=== PATIENT | female | born 1965 | race Caucasian/White ===

== ENCOUNTER 2016-09-08 08:44 | Emergency (ER) | payer BC ==
--- NOTE | 2016-09-08 09:14 | ERNOTE ---
Abdominal HPI - Narrative Date of Service: 09/08/16 - General Chief Complaint: Abdominal Pain Time Seen by Provider: 09/08/16 09:13 Source: patient Exam Limitations: no limitations - Immun/Allergies/Home Medications Immunizatons: IMMUNIZATION HX Immunizations Up to Date Yes History of Influenza Vaccine Yes Hx Pneumococcal Vaccination Yes Allergies/Adverse Reactions: Allergies Iodinated Contrast Media - IV Dye Allergy (Severe, Verified 01/15/16 12:37) CONVULSIONS latex Allergy (Unknown, Verified 01/15/16 12:37) nitrofurantoin Allergy (Verified 01/15/16 12:37) Penicillins Adverse Reaction (Mild, Verified 01/15/16 12:37) RASH Sulfa (Sulfonamide Antibiotics) Adverse Reaction (Mild, Verified 01/15/16 12:37) RASH atorvastatin calcium [From Lipitor] Adverse Reaction (Unknown, Verified 12:37) Other caused acute liver failure hydrochlorothiazide Adverse Reaction (Unknown, Verified 01/15/16 12:37) Other Passed out Home Medications: HOME MEDICATIONS Clonazepam 1 mg PO HS 03/21/15 [Last Taken 01/14/16] Omeprazole [Prilosec] 40 mg PO BID 03/21/15 [Last Taken 01/15/16] metFORMIN HCL [Glucophage] 500 mg PO BIDWM 03/21/15 [Last Taken 01/15/16] Albuterol Sulfate [Proair Hfa] 1 - 2 puff IH Q4H PRN 01/15/16 [Last Taken ] Methenamine Mandelate 1 gm PO BID 01/15/16 [Last Taken 01/15/16] Tiotropium Ophiem [Spiriva] 1 cap IH DAILY 01/15/16 [Last Taken 01/14/16] Activated Charcoal [CharcoCaps] 260 mg PO QID #20 cap 09/08/16 [Last Taken Unknown] Saccharomyces Boulardii [Florastor] 250 mg PO QID #20 capsule 09/08/16 [Last Taken Unknown] Simethicone 125 mg PO QID #20 tab.chew 09/08/16 [Last Taken Unknown] - History of Present Illness Narrative: About a week ago, this 51 year old diabetic woman developed some abdominal discomfort, which reminded her of diverticulitis, with which she was diagnosed about 6 months ago. She was place on Cipro and Flagyl. The cipro made her feel bad all over, like the veins were being torn out of her legs, and elevated her blood pressure. She is still taking the Flagyl. Yesterday, she began to have abdominal bloating, which is worse today. There is enough bloating that she feels as if she can't get a deep enough breath. She has a history of MADDISON and uses CPAP at home. There has been no nausea or vomiting, no diarrhea, no fever, chills or sweats. Timing: getting worse Quality: moderate Activities at Onset: none Modifying Factors - (Improves): Present: other - nothing Modifying Factors - (Worsens): Present: other - nothing Associated Symptoms: Present: swelling/mass in abdomen Prior Abdominal Problems: Present: similar symptoms Prior Treatment: Present: currently on antibiotics Review of Systems - Review of Systems Constitutional: Present: no symptoms reported EYE: Present: no symptoms reported ENT: Present: no symptoms reported Respiratory: Present: See HPI Cardiology: Present: no symptoms reported Gastrointestinal/Abdominal: Present: See HPI Genitourinary: Present: no symptoms reported Musculoskeletal: Present: no symptoms reported Skin: Present: no symptoms reported Neurological: Present: no symptoms reported Endocrine: Present: no symptoms reported Hematologic/Lymphatic: Present: no symptoms reported Psych: Present: no symptoms reported All Other Systems: All systems neg except as marked - Patient's Past Medical History Patient History - Medical: Anxiety, Diabetes Type 2, GERD, Kidney stone, UTI'S Patient History - Cardiac/Respiratory: Hypertension, Myocardial Infarction Patient History - Cancer: Bladder, Surgical Treatment Patient History - Surgical Procedures: Hysterectomy, T & A, Other - Family History Father Family History - Medical: , Diabetes Type 2 Family History - Cardiac/Respiratory: Hypertension, Valvular Heart Disease Mother Family History - Medical: , Rheumatoid Arthritis Family History - Cardiac/Respiratory: Hypertension Daughter Family History - Medical: Hypothyroidism, Kidney stone Family History - Cardiac/Respiratory: No pertinent hx - Social History Living Situations: spouse Smoking Status: Current every day smoker Have you smoked in the past 12 months: Yes Do you dip or chew tobacco: No Alcohol Use: occasionally Drug Use: none, other Physical Exam - Physical Exam General Appearance: Present: wd/wn, alert, no apparent distress Eye Exam: Normal inspection: bilateral, PERRL: bilateral, EOMI: bilateral Ears, Nose, Throat: Present: normal ENT inspection, hearing grossly normal Neck: Present: normal inspection, nontender Respiratory: Present: no respiratory distress, normal breath sounds Cardiovascular/Chest: Present: regular rate, rhythm, no murmur Gastrointestinal/Abdominal: Present: normal bowel sounds, soft, no organomegaly , tenderness - left upper abdomen seems more tender than other areas., distended Back Exam: Present: normal inspection, normal range of motion, no CVA tenderness , no vertebral tenderness Extremity Exam: Present: normal inspection, no edema Neurological Exam: Present: alert, normal mood/affect Skin Exam: Present: normal color, warm/dry ED Progress - Results and Orders Patient's Lab Results:: I have reviewed the patient's lab results. - Vital Signs Patient's Vital Signs:: I have reviewed the patient's vital signs. Vital Signs: Vital Signs 09/08/16 08:53 Pulse Rate 63 Respiratory 24 H Rate Blood Pressure 180/103 O2 Sat by Pulse 96 Oximetry - EKG EKG: NSR EKG read: Interp. by vt - X-Ray X-Ray #1 X-Ray: chest Interpretation: Interp. by me - non acute - CT/Ultrasound CT/Ultrasound Narrative: I have reviewed the abdominal CT report, which describes only non specific findings. - Progress/Reassessment Chief Complaint: Abdominal Pain Progress:: Improved Departure - Departure Clinical Impression: Abdominal bloating Disposition: Home self-care Condition: Good Instructions: Ileus Additional Instructions: rest. clear liquids only for 72 hours. followup with doctor of your choice in 2-3 days. Stop all antibiotics at the present time. Prescriptions: Activated Charcoal [CharcoCaps] 260 mg PO QID #20 cap Saccharomyces Boulardii [Florastor] 250 mg PO QID #20 capsule Simethicone 125 mg PO QID #20 tab.chew
[2016-09-08 09:24] LABS: Hematocrit 41.9 % (37.0-47.0); Hemoglobin 14.5 gm/dL (12.5-16.0); Mean Cell Volume 97.7 fl (78-100); Mean Corpuscular Hemoglobin 33.8 pg (27-31); Mean Corpuscular Hgb Conc 34.6 g/dl (32-36); Mean Platelet Volume 10.3 fl (6.0-9.5); Neutrophil # 5.3 K/mm3 (1.3-6.0); Neutrophil % 64.6 % (42-75.0); Platelet Count 226 K/mm3 (150-450); Red Blood Count 4.29 M/mm3 (4.2-5.4); Red Cell Distribution Width 11.9 % (11.5-14.0); White Blood Count 8.3 K/mm3 (4.0-10.5)
[2016-09-08 09:42] LABS: Albumin * 3.5 gm/dl (3.4-5.0); Anion Gap 16.9 mmol/L (6.8-13.8); BUN/Creatinine Ratio 6.2 (9.0-21.6); Bilirubin, Total 0.5 mg/dL (0.0-1.1); Ca. Corrected For Albumin 9.3 mg/dL (8.4-10.2); Calcium * 9.2 mg/dL (7.9-10.9); Carbon Dioxide 22.5 mmol/L (24-32.6); Potassium 4.4 mmol/L (3.4-4.6); Total Protein 6.9 gm/dL (6.2-8.2); Troponin I 0.024 ng/ml (0.00-0.10)
[2016-09-08] MEDS ORDERED: DIATRIZOATE MEGLU/DIATRIZO SOD 30 ML BTL ONE (09:50)
[2016-09-08] MEDS: DIATRIZOATE MEGLU/DIATRIZO SOD 30 ML BTL PO ONE (10:00)
[2016-09-08] MEDS: NORMAL SALINE 1,000 ML IV PRN (10:00)
[2016-09-08 10:01] LABS: Amylase * 28 U/L (25-115); BNP * 750 pg/mL (5-150); Lipase 86 U/L (73-393)
[2016-09-08 10:21] LABS: Urine Appearance Clear; Urine Bilirubin Negative (NEGATIVE); Urine Blood Negative /ul (NEGATIVE); Urine Color Yellow; Urine Ketone Negative (NEGATIVE)
[2016-09-08 10:22] LABS: Urine Bacteria None Seen; Urine Nitrite Negative (NEGATIVE); Urine Protein Negative (NEGATIVE); Urine RBC None Seen /hpf (0-5); Urine Urobilinogen Normal (NORMAL); Urine WBC 0-5 /hpf (0-5); Urine pH 6.5 pH (5.0-7.0)
[2016-09-08 23:08] VITALS: BP 158/90
== END 2016-09-08 12:58 | disposition home or self-care (01) ==
LOC: ER 08:44
DX: R14.0 Abdominal distension (gaseous) (principal); F17.210 Nicotine dependence, cigarettes, uncomplicated; Z90.710 Acquired absence of both cervix and uterus; Z85.51 Personal history of malignant neoplasm of bladder